=== PATIENT | female | born 1985 | race Caucasian/White ===

== ENCOUNTER → 2016-07-29 | Outpatient (CLI) | payer BC ==
[2016-07-29 07:34] LABS: BASOPHILS # (AUTO) 0.07 10*3/UL; BASOPHILS % (AUTO) 0.7 % (0-1); EOSINOPHILS # (AUTO) 0.61 10*3/UL; EOSINOPHILS % (AUTO) 5.8 % (0-8); HEMATOCRIT 43.7 % (37.0-47.0); HEMOGLOBIN 14.1 g/dL (12.0-16.0); LYMPHOCYTES # (AUTO) 3.92 10*3/uL; MEAN CORPUSCULAR HEMOGLOBIN 28.5 PG (27-31); MEAN CORPUSCULAR HGB CONC 32.3 g/dL (33-37); MEAN CORPUSCULAR VOLUME 88.3 FL (81-99); MEAN PLATELET VOLUME 9.4 FL (7.4-12.2); MONOCYTES # (AUTO) 0.84 10*3/UL (0.3-0.8); NEUTROPHILS # (AUTO) 5.06 10*3/UL; RED BLOOD COUNT 4.95 10^6/uL (4.20-5.40)
[2016-07-29 07:35] LABS: PLATELET MORPHOLOGY COMMENT NORMAL MORPHOLOGY (NORM); RBC MORPHOLOGY COMMENT NORMAL MORPHOLOGY (NORM); WBC MORPHOLOGY COMMENT NORMAL MORPHOLOGY (NORM)
[2016-07-29 07:49] LABS: BLOOD UREA NITROGEN 8 mg/dL (7-22); CALCIUM 9.5 mg/dL (8.7-10.7); CHOL/HDL RATIO 4.73 RATIO (0-4.0); EST GLOMERULAR FILTRATION > 60 (>60 ml/min/1.73m(2)); HDL CHOLESTEROL 45 mg/dL (40-150); SERUM ALBUMIN 4.3 g/dL (3.5-4.8); SERUM CHOLESTEROL 213 mg/dL (120-200)
== END ==
LOC: LAB 07:13
PROVIDERS: ATTEND Family Medicine
DX: Z00.00 Encounter for general adult medical examination without abnormal findings (principal)
CPT/HCPCS: 36415; 80053; 80061; 84443; 85025